=== PATIENT | female | born 1970 | race Caucasian/White ===

== ENCOUNTER 2016-09-19 07:10 | Emergency (ER) | payer BC ==
[2016-09-19 07:24] VITALS: BP 113/73
[2016-09-19] MEDS ORDERED: Ondansetron ODT TAB* 4 MG PO ONE (08:00)
--- NOTE | 2016-09-19 08:12 | UC ---
Abdominal Pain Female HPI - HPI Summary HPI Summary: W[facility] DA[facility] AND TX FOR UTI WITH MACROBID BID X 5 DAYS. IS FEELING WORSE. PERSISTENT SUPRAPUBIC PAIN GOING INTO GROIN AND FLANK (RIGHT>LEFT ), FEELS BLOATED AND NAUSEATED. NO FEVER. HAS URINARY FREQUENCY AND MILD DYSURIA. - History of Current Complaint Chief Complaint: UCAbdominalPain Stated Complaint: ABD PAIN Time Seen by Provider: 09/19/16 07:40 Hx Obtained From: Patient Hx Last Menstrual Period: 08/2015 Uterine ablation 09/11 Onset/Duration: Gradual Onset, Lasting Days, Still Present Timing: Constant Severity Initially: Moderate Severity Currently: Moderate Pain Intensity: 6 Pain Scale Used: 0-10 Numeric Location: Suprapubic Radiates: Yes Radiates to: Flank Character: Burning, Sharp Aggravating Factor(s): Nothing Alleviating Factor(s): Nothing Associated Signs and Symptoms: Positive: Back Pain, Urinary Symptoms, Nausea. Negative: Diaphoresis, Fever, Cough, Chest Pain, Dizzy, Constipation, Blood in Stool, Decreased Appetite, Vaginal Bleeding, Vaginal Discharge, Vomiting, Diarrhea Allergies/Adverse Reactions: Allergies Allergy/AdvReac Type Severity Reaction Status Date / Time Amoxicillin Allergy Severe Rash Verified 09/13/15 08:15 Penicillins Allergy Severe Shortness Verified 09/13/15 08:15 of Breath Sulfa Antibiotics Allergy Severe Rash Verified 09/13/15 08:15 Home Medications: Home Medications Nitrofurantoin Monohyd Macro [Macrobid] 1 cap PO BID 09/19/16 [History Confirmed 09/19/16] PMH/Surg Hx/FS Hx/Imm Hx Psychological History Of: Reports: Anxiety - ON MEDS Cancer History Of: Denies: Breast Cancer - Surgical History Surgical History: Yes Surgery Procedure, Year, and Place: GALLBLADDER, 17 YRS AGO, [facility]. TONSILECTOMY , CHILD. Uterine Ablation - Family History Known Family History: Positive: Diabetes Family History: DIABETES - DAD, RHEUMATOID ARTHRITIS - MOM - Social History Alcohol Use: None Substance Use Type: None Smoking Status (MU): Never Smoked Tobacco Have You Smoked in the Last Year: No Review of Systems Constitutional: Negative Respiratory: Negative Cardiovascular: Negative Gastrointestinal: Abdominal Pain, Other - NAUSEA Genitourinary: Dysuria, Frequency All Other Systems Reviewed And Are Negative: Yes Physical Exam Triage Information Reviewed: Yes Appearance: Well-Appearing, No Pain Distress, Well-Nourished Vital Signs: Initial Vital Signs Temp 98.3 F 09/19/16 07:17 Pulse 68 09/19/16 07:17 Resp 16 09/19/16 07:17 BP 113/73 09/19/16 07:17 Pulse Ox 98 09/19/16 07:17 Vital Signs Reviewed: Yes Eyes: Positive: Conjunctiva Clear ENT: Positive: Hearing grossly normal Neck: Positive: Supple Respiratory: Positive: No respiratory distress, No accessory muscle use Cardiovascular: Positive: Pulses Normal Abdomen Description: Positive: Soft, CVA Tenderness (R) - EQUIVOCAL. Negative: CVA Tenderness (L), Distended, Guarding Musculoskeletal: Positive: No Edema Neurological: Positive: Alert Psychological: Positive: Age Appropriate Behavior Skin: Negative: rashes Diagnostics - Laboratory Diagnostic Studies Completed/Ordered: URINE DIP SP. GR. 1.015, 1+BLOOD - Radiology CT ABD/PELVIS W/O CONTRAST Xray Interpretation: Positive (See Comments) - 2.3 CM CYST OF THE RIGHT HEMIPELVIS Radiology Interpretation Completed By: Radiologist Abd Pain Female Course/Dx - Differential Dx/Diagnosis Provider Diagnoses: 1. ABDOMINAL PAIN, NOS. 2. PELVIC CYST - Physician Notification/Consults Discussed Patient Care With: DR. MICHAELA DUARTE ([employer]) Time Discussed With Above Provider: 09:30 - ADVISED CHANGING ABX FOR UTI AND OFFICE F/U Instructed by Provider To: Have Pt Call For Appt. Discharge - Discharge Plan Condition: Stable Disposition: HOME Prescriptions: Ciprofloxacin TAB* [Cipro Tab*] 500 mg PO BID #10 tab Ondansetron ODT TAB* [Zofran Odt TAB*] 4 mg PO Q6H PRN #20 tab.odt PRN Reason: Nausea/Vomiting Patient Education Materials: Abdominal Pain (ED) Referrals: Mina Cole MD [Primary Care Provider] - If Needed Michaela Duarte MD [Medical Doctor] - 1 Week Additional Instructions: CT TODAY SHOWED A 2.3 CM CYST IN THE RIGHT HEMIPELVIS. THIS MAY OR MAY NOT BE THE SOURCE OF YOUR DISCOMFORT. I SPOKE WITH DR. DUARTE WHO RECOMMENDED CHANGING UP YOUR ABX. FOLLOW-UP WITH HIM IN HIS OFFICE. GO TO THE ER WITHOUT FAIL IF YOU DEVELOP WORSENING PAIN, FEVER, NAUSEA OR ANY OTHER CONCERNING SYMPTOMS.
--- NOTE | 2016-09-19 08:45 | RAD ---
CLINICAL HISTORY: Right flank pain, hematuria COMPARISON: March 21, 2012 TECHNIQUE: Multiple contiguous axial CT scans were obtained of the abdomen and pelvis, without intravenous contrast enhancement. Coronal and sagittal multiplanar reformations are submitted for review. Oral contrast was not administered. FINDINGS: The study is limited by the lack of intravenous contrast. This limits evaluation of the solid organs and vasculature. LUNG BASES: The lung bases are clear. LIVER: The liver is normal in shape, size, contour, and attenuation. BILE DUCTS: There is no intrahepatic or extrahepatic biliary dilatation. GALLBLADDER: The gallbladder is not visualized. Surgical clips are noted in the gallbladder fossa. PANCREAS: The pancreas is normal, without mass or ductal dilatation. SPLEEN: Normal in size and appearance. UPPER GI TRACT: Evaluation of the gastrointestinal tract is limited by incomplete gastric distention. The upper GI tract is unremarkable. SMALL BOWEL AND MESENTERY: The small bowel is normal in contour, course, and caliber. There is no obstruction or dilatation. COLON: The colon is normal in contour, course, caliber. There is no pericolonic inflammatory change. There is a tubular, vermiform, hollow viscus that is blind ending, and originates from the cecum, consistent with a normal appendix. There is no periappendiceal inflammatory change. This is best seen on images 114 through 118. ADRENALS: Normal bilaterally. KIDNEYS: The kidneys are normal in shape, size, contour, and axis. There is no hydronephrosis or nephrolithiasis. BLADDER: The bladder is smooth in contour. PELVIC ORGANS: There is a 2.3 cm cyst of the right hemipelvis. The pelvic organs otherwise normal for patient age and technique. AORTA: The aorta is normal. IVC: Unremarkable LYMPH NODES: There is no lymphadenopathy by size criteria. ABDOMINAL WALL: There is no evidence for abdominal wall hernia. BONES AND SOFT TISSUES: There are mild diffuse degenerative changes. OTHER: None IMPRESSION: NO HYDRONEPHROSIS OR NEPHROLITHIASIS. 2.3 CM CYST OF THE RIGHT HEMIPELVIS
== END 2016-09-19 10:00 | disposition home or self-care (01) ==
LOC: UCEAST 07:10
DX: R10.30 Lower abdominal pain, unspecified (principal); N94.89 Other specified conditions associated with female genital organs and menstrual cycle; F41.9 Anxiety disorder, unspecified; Z88.0 Allergy status to penicillin; Z88.2 Allergy status to sulfonamides
CPT/HCPCS: 74176; 81002; 99212; A9270-GY; G0463

== ENCOUNTER 2017-08-24 15:18 | Emergency (ER) | payer BC ==
[2017-08-24 17:26] VITALS: BP 120/72
--- NOTE | 2017-08-24 17:47 | ED ---
Respiratory - HPI Summary HPI Summary: 46 yr old with runny nose, sore throat, myalgias, chills and coughing, in the setting of influenza outbreak. No SOB. No CP. No other complaints. - History of Current Complaint Chief Complaint: UCGeneralIllness Stated Complaint: SORE THROAT,COUGH, BODY ACHES Time Seen by Provider: 08/24/17 17:38 Pain Intensity: 5 - Allergy/Home Medications Allergies/Adverse Reactions: Allergies Allergy/AdvReac Type Severity Reaction Status Date / Time Amoxicillin Allergy Severe Rash Verified 08/24/17 17:26 Penicillins Allergy Severe Shortness Verified 08/24/17 17:26 of Breath Sulfa Antibiotics Allergy Severe Rash Verified 08/24/17 17:26 PMH/Surg Hx/FS Hx/Imm Hx Previously Healthy: Yes Cardiovascular History: Denies: Other Cardiovascular Problems/Disorders Respiratory History: Denies: Other Respiratory Problems/Disorders GI History: Denies: Other GI Disorders Musculoskeletal History: Denies: Other Musculoskeletal History Sensory History: Denies: Hx Contacts or Glasses, Hx Hearing Aid Opthamlomology History: Denies: Hx Contacts or Glasses Neurological History: Denies: Other Neuro Impairments/Disorders Psychiatric History: Reports: Hx Anxiety - ON MEDS - Cancer History Hx Chemotherapy: No Hx Radiation Therapy: No - Surgical History Surgery Procedure, Year, and Place: GALLBLADDER, 17 YRS AGO, [facility]. TONSILECTOMY , CHILD. Uterine Ablation Hx Anesthesia Reactions: No Infectious Disease History: No Infectious Disease History: Denies: History Other Infectious Disease, Traveled Outside the [place] in Last 30 Days - Family History Known Family History: Positive: Diabetes Family History: DIABETES - DAD, RHEUMATOID ARTHRITIS - MOM - Social History Alcohol Use: None Substance Use Type: Reports: None Smoking Status (MU): Never Smoked Tobacco Have You Smoked in the Last Year: No Review of Systems Positive: Chills Positive: Sore Throat, Nasal Discharge Positive: Cough All Other Systems Reviewed And Are Negative: Yes Physical Exam Triage Information Reviewed: Yes Vital Signs On Initial Exam: Initial Vitals Temp Pulse Resp BP Pulse Ox 98.4 F 72 16 120/72 99 08/24/17 17:20 08/24/17 17:20 08/24/17 17:20 08/24/17 17:20 08/24/17 17:20 Vital Signs Reviewed: Yes Appearance: Positive: Well-Appearing, No Pain Distress Skin: Positive: Warm, Skin Color Reflects Adequate Perfusion Eyes: Positive: EOMI ENT: Positive: Pharyngeal erythema, Nasal congestion, Nasal drainage, TMs normal. Negative: Muffled voice, Hoarse voice Neck: Positive: Supple, Nontender Respiratory/Lung Sounds: Positive: Clear to Auscultation, Breath Sounds Present Cardiovascular: Positive: RRR. Negative: Murmur Abdomen Description: Positive: Nontender Musculoskeletal: Positive: Strength/ROM Intact Neurological: Positive: Sensory/Motor Intact, Alert, Oriented to Person Place, Time, CN Intact II-III Psychiatric: Positive: Normal - Hunter Coma Scale Best Eye Response: 4 - Spontaneous Best Motor Response: 6 - Obeys Commands Best Verbal Response: 5 - Oriented Coma Scale Total: 15 Diagnostics - Vital Signs Vital Signs Temp Pulse Resp BP Pulse Ox 08/24/17 17:20 98.4 F 72 16 120/72 99 - Laboratory Lab Statement: Any lab studies that have been ordered have been reviewed, and results considered in the medical decision making process. Disposition - Course Course Of Treatment: 46 yr old with influenza symptoms. DC home on tamiflu. - Diagnoses Provider Diagnoses: Influenza Discharge - Discharge Plan Condition: Good Disposition: HOME Prescriptions: Oseltamivir CAP* [Tamiflu CAP*] 75 mg PO BID #10 cap Patient Education Materials: Influenza (ED) Forms: *Work Release Referrals: Mina Cole MD [Primary Care Provider] - 2 Days
== END 2017-08-24 17:49 | disposition home or self-care (01) ==
LOC: UCCORT 15:18
DX: J11.1 Influenza due to unidentified influenza virus with other respiratory manifestations (principal); F41.9 Anxiety disorder, unspecified; Z90.49 Acquired absence of other specified parts of digestive tract; Z88.0 Allergy status to penicillin; Z88.2 Allergy status to sulfonamides
CPT/HCPCS: 99212; G0463

== ENCOUNTER 2019-07-11 07:13 | Emergency (ER) | payer BC ==
[2019-07-11 07:25] VITALS: BP 116/51
--- NOTE | 2019-07-11 07:34 | UC ---
Throat Pain/Nasal Rao HPI - HPI Summary HPI Summary: 48-year-old woman comes in with chief complaint of upper respiratory tract infection symptoms for 3 days. She has yellow rhinorrhea postnasal drip sore throat cough chest congestion chills. Been using [id number] medicines which helped the symptoms some. Patient is not a smoker. - History of Current Complaint Chief Complaint: UCGeneralIllness Stated Complaint: SINUS/COUGH Time Seen by Provider: 07/11/19 07:27 Hx Last Menstrual Period: n/a - uterine ablation Pain Intensity: 3 - Allergies/Home Medications Allergies/Adverse Reactions: Allergies Allergy/AdvReac Type Severity Reaction Status Date / Time amoxicillin Allergy Rash Verified 07/11/19 07:20 Penicillins Allergy Shortness Verified 07/11/19 07:20 of Breath Sulfa (Sulfonamide Allergy Rash Verified 07/11/19 07:20 Antibiotics) Home Medications: Home Medications Atorvastatin* [Lipitor*] 20 mg PO DAILY 07/11/19 [History Confirmed 07/11/19] Dm/Acetaminophen/Doxylamine [Nighttime Cold and Flu Liquid] 30 ml PO ONCE [History Confirmed 07/11/19] guaiFENesin [Mucinex] 1 tab PO ONCE 07/11/19 [History Confirmed 07/11/19] PMH/Surg Hx/FS Hx/Imm Hx Previously Healthy: Yes Endocrine History: Dyslipidemia - Surgical History Surgical History: Yes Surgery Procedure, Year, and Place: GALLBLADDER, 17 YRS AGO, [facility]. TONSILECTOMY , CHILD. Uterine Ablation - Family History Known Family History: Positive: Diabetes Family History: DIABETES - DAD, RHEUMATOID ARTHRITIS - MOM - Social History Alcohol Use: None Substance Use Type: None Smoking Status (MU): Never Smoked Tobacco Have You Smoked in the Last Year: No Review of Systems All Other Systems Reviewed And Are Negative: Yes Constitutional: Positive: Chills, Other - see hpi Skin: Positive: Negative Eyes: Positive: Negative ENT: Positive: Sore Throat, Ear Ache, Nasal Discharge, Sinus Congestion, Sinus Pain/Tenderness Respiratory: Positive: Cough, Other - see hpi Cardiovascular: Positive: Negative Gastrointestinal: Positive: Negative Motor: Positive: Negative Neurovascular: Positive: Negative Musculoskeletal: Positive: Negative Neurological: Positive: Negative Psychological: Positive: Negative Is Patient Immunocompromised?: No Physical Exam Triage Information Reviewed: Yes Appearance: No Pain Distress, Well-Nourished, Ill-Appearing - mild Vital Signs: Initial Vital Signs Temp 99.6 F 07/11/19 07:21 Pulse 81 07/11/19 07:21 Resp 14 07/11/19 07:21 BP 116/51 07/11/19 07:21 Pulse Ox 97 07/11/19 07:21 Vital Signs Reviewed: Yes Eye Exam: Normal Eyes: Positive: Conjunctiva Clear ENT: Positive: Pharyngeal erythema, Nasal congestion, Nasal drainage, TMs normal Neck: Positive: Supple Respiratory: Positive: Lungs clear, Normal breath sounds, No respiratory distress Cardiovascular: Positive: RRR Musculoskeletal: Positive: Strength Intact, ROM Intact Neurological: Positive: Alert, Muscle Tone Normal Psychological: Positive: Age Appropriate Behavior Skin Exam: Normal Throat Pain/Nasal Course/Dx - Course Course Of Treatment: DISCUSSED VIRAL VERSES BACTERIAL INFECTIONS AND THE ROLE OF ANTIBIOTICS. THE PATIENT PREFERS TO BE ON ANTIBIOTICS AT THIS TIME. - Differential Dx/Diagnosis Provider Diagnosis: Upper respiratory infection Discharge ED - Sign-Out/Discharge Documenting (check all that apply): Patient Departure All imaging exams completed and their final reports reviewed: No Studies - Discharge Plan Condition: Stable Disposition: HOME Prescriptions: Azithromyxin ANDREE (NF) [Z-Andree (Zithromax) 250 mg tabs #6] 2 tab PO .TODAY, THEN 1 DAILY #6 tab Patient Education Materials: Upper Respiratory Infection (ED) Referrals: Mina Cole MD [Primary Care Provider] - Additional Instructions: FOLLOW UP WITH YOUR DOCTOR IF NOT COMPLETELY IMPROVED. GET REEVALUATED SOONER IF NOT IMPROVING OR WORSE OR ANY QUESTIONS OR CONCERNS. - Billing Disposition and Condition Condition: STABLE Disposition: Home
== END 2019-07-11 07:39 | disposition home or self-care (01) ==
LOC: UCCORT 07:13
DX: J06.9 Acute upper respiratory infection, unspecified (principal); E78.5 Hyperlipidemia, unspecified; H92.09 Otalgia, unspecified ear; Z88.0 Allergy status to penicillin; Z88.2 Allergy status to sulfonamides; Z79.899 Other long term (current) drug therapy
CPT/HCPCS: 99212; G0463